=== PATIENT | male | born 1970 | race Caucasian/White ===

== ENCOUNTER 2018-09-27 12:46 | Emergency (ER) | payer OTHER ==
--- NOTE | 2018-09-27 12:56 | PDOC ---
History of Present Illness - General Chief Complaint: Migraine Headache Stated Complaint: FEVER BLISTERS, MIGRAINE, VOMITING Time Seen by Provider: 09/27/18 12:53 - History of Present Illness Initial Comments: 09/27/18 13:04 Mr. Laura is a 48 yo male w/ pmh of HLD, DMII, obesity who presents for evaluation of multiple complaints. Patient reports he started having a headache on Sunday that was slow in onset and that he localizes to the middle of his head. Denies any neurological symptoms. Starting yesterday he had some nausea and vomiting x2. No further vomiting however today Mr. Laura reports he had subjective fevers which have now resolved. He further reports blistering of his lips which he reports happens whenever he has a fever. Patient took tylenol yesterday however has taken no motrin/tylenol today. The patient denies chest pain, shortness of breath, and dizziness. Denies chills , diarrhea, and constipation. Denies dysuria, frequency, urgency and hematuria. Past History - Past Medical History Allergies/Adverse Reactions: Allergies Allergy/AdvReac Type Severity Reaction Status Date / Time metformin Allergy Intermediate Swelling Verified 09/27/18 12:49 shellfish derived Allergy Intermediate Swelling Verified 09/27/18 12:49 Home Medications: Ambulatory Orders Ferrous Sulfate [Slow Release Iron] 500 mg PO DAILY 09/27/18 Sitagliptin Phosphate [Januvia] 100 mg PO DAILY 09/27/18 Valacyclovir HCl [Valtrex] 2,000 mg PO ONCE #2 tablet 09/27/18 Review of Systems - Review of Systems Comments:: 09/27/18 13:12 GENERAL/CONSTITUTIONAL: +Subjective fever this AM. No weakness. HEAD, EYES, EARS, NOSE AND THROAT: No change in vision. No ear pain or discharge. No sore throat. CARDIOVASCULAR: No chest pain or shortness of breath RESPIRATORY: No cough, wheezing, or hemoptysis. GASTROINTESTINAL: +N/V as described. No diarrhea or constipation. GENITOURINARY: No dysuria, frequency, or change in urination. MUSCULOSKELETAL: No joint or muscle swelling or pain. No neck or back pain. SKIN: No rash NEUROLOGIC: +Constant headache. No vertigo, loss of consciousness, or change in strength/sensation. ENDOCRINE: No increased thirst. No abnormal weight change HEMATOLOGIC/LYMPHATIC: No anemia, easy bleeding, or history of blood clots. ALLERGIC/IMMUNOLOGIC: No hives or skin allergy. *Physical Exam - Physical Exam Comments: 09/27/18 13:13 GENERAL: +Patient obese. Awake, alert, and fully oriented, in no acute distress HEAD: +small clustered vesicular lesions noted to upper lips. No signs of trauma , normocephalic, atraumatic EYES: PERRLA, EOMI, sclera anicteric, conjunctiva clear ENT: Auricles normal inspection, hearing grossly normal, nares patent, oropharynx clear without exudates. Moist mucosa NECK: Normal ROM, supple, no lymphadenopathy, JVD, or masses LUNGS: No distress, speaks full sentences, clear to auscultation bilaterally HEART: Regular rate and rhythm, normal S1 and S2, no murmurs, rubs or gallops, peripheral pulses normal and equal bilaterally. ABDOMEN: Soft, nontender, normoactive bowel sounds. No guarding, no rebound. No masses EXTREMITIES: Normal inspection, Normal range of motion, no edema. No clubbing or cyanosis. NEUROLOGICAL: Cranial nerves II through XII grossly intact. Normal speech, normal gait, no focal sensorimotor deficits SKIN: Warm, Dry, normal turgor, no rashes or lesions noted. ED Treatment Course - LABORATORY CBC & Chemistry Diagram: 09/27/18 13:30 09/27/18 13:30 Medical Decision Making - Medical Decision Making 09/27/18 13:14 Mr. Laura is a 48 yo male w/ pmh as described who presents for evaluation of headache in the setting of likely viral illness. Differential also includes migraine vs. dehydration vs. endocrine problems. Meningitis less likely. Patient currently afebrile and denies taking any motrin/tylenol today - decision made to hold any LP as no meningeal symptoms and patient afebrile. Will workup with basic laboratory evaluation and flu swab with hydration. Will also evaluate CXR and UA for infection source. 09/27/18 14:53 Patient reporting relief from symptoms with reglan and hyrdation. Labs grossly wnl as below. No concern for acute process at this time. Discharging to home. Laboratory Results - last 24 hr 09/27/18 09/27/18 09/27/18 13:15 13:15 13:30 WBC 7.4 RBC 5.72 H Hgb 15.6 Hct 48.9 MCV 85.5 MCH 27.3 MCHC 31.9 L RDW 13.4 Plt Count 208 MPV 8.3 Absolute Neuts (auto) 5.8 Neutrophils % 78.3 Lymphocytes % 11.8 Monocytes % 7.7 Eosinophils % 1.6 Basophils % 0.6 Sodium Potassium Chloride Carbon Dioxide Anion Gap BUN Creatinine Creat Clearance w eGFR Random Glucose Calcium Total Bilirubin AST ALT Alkaline Phosphatase Total Protein Albumin Urine Color Yellow Urine Appearance Clear Urine pH 6.0 Ur Specific [place] 1.025 Urine Protein Trace Urine Glucose (UA) Negative Urine Ketones Negative Urine Blood Negative Urine Nitrite Negative Urine Bilirubin Negative Urine Urobilinogen 2.0 Ur Leukocyte Esterase Negative Influenza A (Rapid) Negative Influenza B (Rapid) Negative 09/27/18 13:30 WBC RBC Hgb Hct MCV MCH MCHC RDW Plt Count MPV Absolute Neuts (auto) Neutrophils % Lymphocytes % Monocytes % Eosinophils % Basophils % Sodium 136 Potassium 4.0 Chloride 106 Carbon Dioxide 24 Anion Gap 6 L BUN 15 Creatinine 0.9 Creat Clearance w eGFR > 60 Random Glucose 148 H Calcium 9.2 Total Bilirubin 0.6 AST 20 ALT 20 Alkaline Phosphatase 74 Total Protein 7.5 Albumin 3.8 Urine Color Urine Appearance Urine pH Ur Specific [place] Urine Protein Urine Glucose (UA) Urine Ketones Urine Blood Urine Nitrite Urine Bilirubin Urine Urobilinogen Ur Leukocyte Esterase Influenza A (Rapid) Influenza B (Rapid) *DC/Admit/Observation/Transfer Diagnosis at time of Disposition: Cold sore Headache Qualifiers: Headache type: unspecified Headache chronicity pattern: unspecified pattern Intractability: not intractable Qualified Code(s): R51 - Headache - Discharge Dispostion Disposition: HOME Condition at time of disposition: Good - Prescriptions Prescriptions: Valacyclovir HCl [Valtrex] 2,000 mg PO ONCE #2 tablet - Referrals Referrals: Oni Jara [Primary Care Provider] - - Patient Instructions Printed Discharge Instructions: DI for Headache Additional Instructions: You were evaluated today in the Emergency Room for your symptoms. We evaluated you with labs and Xray with no concerning findings. You felt better after treatment with fluids and a headache medication. We have also sent a medication to your pharmacy. Take as instructed. Follow-up with primary care provider later this week for further evaluation. Return to ER if any further fever, chills, pain, or other concerning symptoms. - Post Discharge Activity Forms/Work/School Notes: Back to Work
[2018-09-27 13:07] VITALS: BP 124/90; PULSE 85; TEMP 98.4; BMI 45.1
[2018-09-27] MEDS ORDERED: ONDANSETRON 4 MG/2 ML VIAL IVPUSH ONE (13:11)
[2018-09-27] MEDS ORDERED: METOCLOPRAMIDE HCL INJECTION 10 MG/2 ML VIAL IVPUSH ONE (13:11)
[2018-09-27] MEDS ORDERED: SODIUM CHLORIDE 1,000 ML IV STA (13:11)
[2018-09-27] MEDS ORDERED: METOCLOPRAMIDE HCL INJECTION 10 MG/2 ML VIAL ONE (13:22)
[2018-09-27] MEDS ORDERED: ONDANSETRON 4 MG/2 ML VIAL ONE (13:22)
[2018-09-27 13:26] LABS: URINE APPEARANCE Clear; URINE BILIRUBIN Negative (NEGATIVE); URINE COLOR Yellow; URINE GLUCOSE (UA) Negative (NEGATIVE); URINE KETONE Negative (NEGATIVE); URINE LEUK ESTERASE Negative (NEGATIVE); URINE NITRITE Negative (NEGATIVE); URINE PROTEIN Trace (NEGATIVE)
[2018-09-27 13:45] LABS: BASO % 0.6 % (0-2.0); EOS % 1.6 % (0-4.5); HEMATOCRIT 48.9 % (35.4-49); HEMOGLOBIN 15.6 GM/dl (11.7-16.9); LYMPH % 11.8 % (8-40); MCH 27.3 pg (25.7-33.7); MCHC 31.9 g/dl (32.0-35.9); MEAN CELL VOLUME 85.5 fl (80-96); MEAN PLT VOLUME 8.3 fl (7.5-11.1); MONO % 7.7 % (3.8-10.2); NEUT % 78.3 % (42.8-82.8); PLATELET COUNT 208 K/MM3 (134-434); RBC 5.72 M/mm3 (4.00-5.60); RDW 13.4 % (11.9-15.9); WHITE BLOOD COUNT 7.4 K/mm3 (4.0-10.8)
[2018-09-27 14:00] LABS: ALBUMIN 3.8 g/dl (3.5-5.0); ALK PHOS 74 U/L (32-92); ANION GAP 6 MMOL/L (8-16); BILIRUBIN,TOTAL 0.6 mg/dl (0.2-1.0); BLOOD UREA NITROGEN 15 mg/dl (7-18); CALCIUM 9.2 mg/dl (8.4-10.2); CHLORIDE 106 mmol/L (98-107); CO2 24 mmol/L (22-28); CREATININE 0.9 mg/dl (0.6-1.3); GLUCOSE,RANDOM 148 mg/dl (74-106); SGOT/AST 20 U/L (10-42); SGPT/ALT 20 U/L (10-40); SODIUM 136 mmol/L (136-145); TOT PROT 7.5 g/dl (6.4-8.3)
[2018-09-27] MEDS ORDERED: valACYclovir HCL 1000 MG TABLET PO ONE (14:19)
[2018-09-27] MEDS ORDERED: valACYclovir HCL 500 MG TABLET (FP) ONE (14:22)
== END 2018-09-27 15:20 | disposition home or self-care (01) ==
LOC: FER 12:46
PROC: 3E033GC Introduction of Other Therapeutic Substance into Peripheral Vein, Percutaneous Approach (ICD-10-PCS; principal; 2018-09-27)
PROC: 3E0337Z Introduction of Electrolytic and Water Balance Substance into Peripheral Vein, Percutaneous Approach (ICD-10-PCS; 2018-09-27)
DX: B00.1 Herpesviral vesicular dermatitis (principal); R51 Headache; E11.9 Type 2 diabetes mellitus without complications; E78.5 Hyperlipidemia, unspecified; E66.9 Obesity, unspecified; Z68.42 Body mass index [BMI] 45.0-49.9, adult; Z88.8 Allergy status to other drugs, medicaments and biological substances; Z91.013 Allergy to seafood
CPT/HCPCS: 36415; 71046-TC-FY; 80053; 81003; 85025; 87086; 87804; 99284-25; J7030